=== PATIENT | female | born 1940 | race Caucasian/White ===

== ENCOUNTER → 2018-03-11 09:25 | Outpatient (CLI) | payer MEDICARE, OTHER, SELFPAY ==
[2018-03-11 09:45] LABS: Add Manual Diff / Slide Review NO; Basophils Percent Auto 1.2 % (0-2); Eosinophils Percent Auto 2.3 % (2-4); Hematocrit 40.7 % (36-46); Hemoglobin 14.1 g/dL (12.0-16.0); Lymphocytes Percent Auto 25.2 % (25-40); Mean Corpuscular HGB Conc 34.6 % (30-36); Mean Corpuscular Hemoglobin 30.7 PG (26-34); Mean Corpuscular Volume 88.8 fL (80-100); Monocytes Percent Auto 4.8 % (3-14); Neutrophils Absolute Auto 5200 /uL (3000-5900); Neutrophils Percent Auto 66.5 % (50-75); Platelet Count 306 X10^3/uL (150-400); Red Blood Cell Count 4.58 X10^6/uL (4.0-5.2); Red Cell Distribution Width 12.8 % (11.6-14.8); White Blood Cell Count 7.8 X10^3/uL (4.5-11.0)
[2018-03-11 10:12] LABS: Carbon Dioxide 33 mmol/L (22-32); Chloride 99 mmol/L (98-107); HEMOLYSIS < 15 (0-50); Potassium 3.5 mmol/L (3.4-5.1); Sodium 142 mmol/L (137-145)
== END ==
PROVIDERS: PCP Internal Medicine; Visit Provider Orthopaedic Surgery
DX: M16.12 Unilateral primary osteoarthritis, left hip (principal); Z01.818 Encounter for other preprocedural examination; Z01.812 Encounter for preprocedural laboratory examination
CPT/HCPCS: 36415; 80051; 85025; 93005

== ENCOUNTER → 2018-03-21 09:41 | Outpatient (CLI) | payer MEDICARE, OTHER, SELFPAY ==
--- NOTE | 2018-03-21 | DI.NM.S_ITS ---
PROCEDURE: NM CECE PERF SPECT R&S PHARM Rest and pharmacological stress myocardial perfusion SPECT with gated imaging and ejection fraction RADIOPHARMACEUTICAL: 27.3 mCi Tc-99m tetrafosmin IV at rest and 25.6 mCi Tc-99m tetrafosmin IV at peak effect of pharmacological stress. [id number] was performed. INDICATIONS: ABNORMAL EKG TECHNIQUE: Radiopharmaceutical was injected at peak stress test, and also at rest. SPECT images were obtained. SPECT myocardial perfusion images were displayed in short axis, horizontal long axis, and vertical long axis views. Gated images were reviewed using Rackwise software. COMPARISON: None. CARDIAC STRESS: A pharmacologic stress test was performed under the supervision of an attending staff, using an infusion of lexiscan 0.4mg IV X1. Hemodynamic data: There is normal blood pressure and heart rate response to pharmacologic stress. Symptoms: The patient denied anginal chest pain. Aminophylline: none EKG: Resting ECG shows sinus rhythm with right axis deviation and no ST-T changes. No diagnostic changes of ischemia; occasional PACs and occasional PVCs noted. FINDINGS: Raw data: There is good myocardial uptake of radiotracer. No significant motion artifacts. Left ventricle function: Gated images demonstrate normal left ventricular wall thickening. No segmental wall motion abnormalities. No transient ischemic dilation; TID is 0.85 (normal less than 1.3). Left ventricle resting end diastolic volume is 73 mL. Left ventricle stress ejection fraction is 90%; normal range is above 45%. Myocardial perfusion: There is normal distribution of activity in the right and left ventricular myocardium. No fixed or reversible perfusion defects. IMPRESSION: Low risk, normal pharmaceutical nuclear stress test 1) No perfusion evidence of ischemia or infarction. 2) Normal left ventricular size, wall motion, and systolic function (post stress EF 90%). 3) No ECG evidence of ischemia with lexiscan. 4) No prior nuclear stress test available for comparison. Dictated by: Shay Gavin MD on 03/22/2018 at 12:42 Approved by: Shay Gavin MD on 03/22/2018 at 12:45
--- NOTE | 2018-03-21 11:26 | PM.TREADMILL ---
Cardiac Stress Test Report Referral & Results Date Patient Seen: 03/21/18 Time Patient Seen: 11:26 Requesting provider: Avelino Chin Indication: Preop, abnormal resting ECG Rest ECG: Unremarkable, nonpathologic Q-waves seen Procedure Note: After both written and verbal informed consent the patient had an IV started by the diagnostic imaging RN and then was hooked up to the treadmill monitoring system. The patient was placed on the treadmill at 1 mile an hour with no elevation and was then injected with the Ines scan material. The Cardiolite was then immediately administered. The patient spent an additional 2-3 minutes on the treadmill before being returned to the [facility] in the supine position. The patient had a normal response to all infused materials. Impression: No evidence of ischemia but due to lack of exercise and use of Lexiscan would not expect to see any abnormalities at this stage. Perfusion imaging will be reported separately Please note: Actual ECG tracings can be found in the PACS system.
== END ==
PROVIDERS: Family Provider Internal Medicine; PCP Internal Medicine; Visit Provider Internal Medicine
DX: R94.31 Abnormal electrocardiogram [ECG] [EKG] (principal)
CPT/HCPCS: 78452; 93016; 93017; 93018; A9502; J2785

== ENCOUNTER 2018-04-04 08:04 | Inpatient (IN) | payer MEDICARE, OTHER, SELFPAY ==
[2018-03-23 13:34] VITALS: BMI 35.3
[2018-04-04] VITALS (17 sets, daily range): BP systolic 117–184; BP diastolic 52–97; PULSE 54–88; RESP 10–59; TEMP 35–36.9; O2SAT 93–97; BMI 35.3
[2018-04-04] MEDS: LACTATED RINGERS 1,000 ML 42 ML IV ×2 (08:45→10:48)
[2018-04-04] MEDS: PREGABALIN 75 MG CAPSULE PO (08:50)
[2018-04-04] MEDS: CELECOXIB 200 MG CAPSULE PO (08:50)
[2018-04-04] MEDS: ACETAMINOPHEN 325 MG TABLET 975 MG PO ×3 (08:50→20:47)
--- NOTE | 2018-04-04 09:30 | PM.PREOP ---
Pre-operative Note Interval Note Pre-op Check: Yes History & Physical Reviewed by Physician Changes: No
[2018-04-04] MEDS: CEFAZOLIN 2 GM/100 ML FROZ.PIGGY IV ×2 (09:40→17:20)
--- NOTE | 2018-04-04 09:45 | DI.RAD.S_ITS ---
PROCEDURE: XR PELVIS 1-2V INDICATIONS: LEFT TOTAL HIP TECHNIQUE: 1 view of the lower pelvis acquired. COMPARISON: [facility], , PELVIS 1 OR 2 VIEWS, 03/23/2011, 15:16. FINDINGS: Bones: Patient is status post left hip arthroplasty, with hardware components in expected positions. The hip joint appears congruent. The visualized bony structures appear intact. Soft tissues: Overlying postoperative changes are noted. No suspicious soft tissue densities. IMPRESSION: Prior right total hip arthroplasty remains normal in appearance, newly placed left total hip arthroplasty demonstrates normal alignment. Dictated by: Denys Dill M.D. on 04/04/2018 at 11:55 Approved by: Denys Dill M.D. on 04/04/2018 at 11:56
--- NOTE | 2018-04-04 10:16 | SUR.OPER ---
Lateral on padded OR bed. Gel axillary roll. Arms secured on padded armboard with pillow supporting top arm. Padded hip positioner braces x4 - anterior and posterior chest and pelvis. Additional gel pad used anterior pelvis. Gel pad under bottom leg from knee to foot and secured with tape over sheet.
[2018-04-04] MEDS: BUPIVACAINE 0.25% W/ EPI VIAL 50 ML INJ (10:22)
[2018-04-04] MEDS: TRANEXAMIC ACID 1,000 MG VIAL 1000 MG INJ ×2 (10:23→10:51)
--- NOTE | 2018-04-04 11:23 | PM.OP.1 ---
Operative Date/Time/Diagnoses Date of procedure: 04/04/18 Time of procedure: 11:23 Pre-op diagnosis: Left hip degenerative joint disease Post-op diagnosis: same Procedure & Clinicians Procedure: Left total hip arthroplasty (CPT code 41141 with property management assistant) Same procedure as scheduled: Yes Indications: Patient is an 77-year-old female with severe left hip DJD. The patient has pain with activities and at rest, limited ambulation and activity tolerance, difficulties with ADLs, and failure of conservative treatment. We have discussed the nature of condition, treatment options, risks and benefits, and patient elects to proceed with total hip arthroplasty and gives informed consent. Surgeon: Dandre Valencia [employer] Machine Feeder: Olive Barber Anesthesia Type: General and Spinal Operative Notes Closure Type: primary Specimen(s): none sent Implants & Drains: Acetabulum: [employer]hew R3 acetabular component size 52 mm Femoral component: [employer]hew Synergy stem size 12 with high offset Femoral head: 36 mm + 0 cobalt chrome Estimated Blood Loss (mL): 100 Blood products transfused: none Procedure in detail: After satisfaction induction of anesthetic, and administration of IV antibiotics, the patient was positioned in the lateral decubitus position with all bony prominences well padded and pelvic position secured using a hip political advisor positioning device. Left hip and lower extremity prepped and draped in the usual sterile fashion, 1st dose of intravenous tranexamic acid was administered, then a longitudinal incision was created centered over the greater trochanter and carried sharply through the skin and subcutaneous tissues down to the fascia shawanad which was divided longitudinally and retracted with a Charnley retractor. External rotators visualize, cut, tagged, and retracted posteriorly, then the capsule was cut in a T-type fashion with the corners tagged and retracted. Hip was dislocated and femoral neck cut made according to preoperative templating. Acetabular retractors then placed, and the acetabular labrum and osteophytes were excised. The acetabulum was then sequentially reamed to 51 mm with an excellent circumferential ream and fit with the trial. The trial component was removed and a permanent size 52 mm Anne [employer]hew R3 acetabular component was selected, positioned, and impacted with satisfactory position and fixation achieved. Permanent liner was then inserted with the elevated lip directed posteriorly. Soft tissue then removed off the lateral femoral neck in the lateral neck was entered using a box osteotome. T-handled reamers placed down the canal followed by sequential broaching to 12 with the final broach left in place for trial reduction which demonstrated excellent leg length, range of motion, and stability characteristics with a 36 mm +0 trial ball. The trial and broach were removed, and a permanent size 12 Anne and Nephew Synergy stem was selected and inserted with excellent position and fixation achieved. Another trial reduction yielded the above characteristics so the trial ball was exchanged for a permanent 36 mm +0 cobalt chrome ball. The hip was irrigated and reduced and excellent leg length range of motion and stability characteristics were achieved and maintained. The hip was copiously irrigated, and the capsule repaired with #2 Ethibond, and the piriformis was repaired back to the greater trochanter with the same. Fascia shawanda closed with interrupted #1 Ethibond sutures, and the subcutaneous tissues were closed in 2 layers of 0 Vicryl and 2 0 Vicryl. Skin was closed with chester and sterile dressings applied. Second dose of tranexamic acid was administered intravenously, and the anesthetic was terminated. Complications: none Condition: stable Disposition: PACU Plan for aftercare: Patient will be admitted to the acute care [facility], and anticipate discharge on postop day 1-2 with follow-up in office in 10-14 days. Outpatient physical therapy will be arranged and patient will continue to observe posterior hip precautions. Patient will continue use of postoperative Lovenox for 10 days postop.
--- NOTE | 2018-04-04 11:52 | SUR.PHASEI ---
gLASSES AND CLOTHES TO 218 WITH PATIENT
--- NOTE | 2018-04-04 12:03 | PC.NURSE ---
Day shift: Pt arrived on AC unit at 1200 from PACU. Oriented to room and call light. She is A&Ox3. Denies pain. Left hip bulky dressing is CDI. Call light in reach. Agrees to not get OOB w/o help. She has had her other hip done in the past. VS ok.
[2018-04-04] MEDS: LACTATED RINGERS 1,000 ML 125 ML IV ×2 (12:24→20:58)
--- NOTE | 2018-04-04 17:07 | PT.IIE ---
Current Diagnoses Unilateral primary osteoarthritis, left hip (04/04/18) Surgery Performed Operation Date: 04/04/18 09:45 Actual Procedures p Total Hip Arthroplasty(Left) - Dandre Valencia MD Surgical History (Last Updated 03/23/18 @ 14:39 by Krissy Hutchinson, RN) History of appendectomy (Acute ~1946) History of cardiac cath (Acute) History of cystoscopy (Acute) History of dilation and curettage (Acute) History of eye surgery (Acute ~1947) History of total right hip arthroplasty (Acute) Status post blepharoplasty of both eyes (Acute) Medical History (Last Updated 03/23/18 @ 16:52 by Krissy Hutchinson, RN) Amblyopia of right eye (Acute) Blind right eye (Acute) Carbuncle and furuncle of face (Acute) Cataract (lens) fragments in eye following cataract surgery, left eye (Acute) Constipation (Acute) Depression (Acute) Dyspnea on exertion (Acute) Hearing loss (Acute) History of bradycardia (Acute) History of chest pain (Acute) History of headache (Acute) History of hysterectomy (Acute) History of nuclear stress test (Acute) History of prosthetic unicompartmental arthroplasty of left knee (Acute) History of uterine fibroid (Acute) Hypertension (Acute) Hypoglycemia (Acute ~1969) Impaired vision (Acute) Insomnia, unspecified (Acute) Lumbago (Acute) Malaise and fatigue (Acute) Mitral valve disorder (Acute) Numbness and tingling of leg (Acute) Obesity (Acute) Osteoarthrosis, localized (Acute) Other specified disease of hair and hair follicles (Acute) Other symptoms involving digestive system (Acute) Primary osteoarthritis of left hip (Acute) Ptosis (Acute) Physical Therapy Inpatient Evaluation/Re-Eval M1 PT/OT-IP Prior Functional Status Start: 04/04/18 16:54 Freq: NEEDED Status: Active Protocol: Document 04/04/18 16:55 [facility] (Rec: 04/04/18 17:07 [facility] [id number]) Medical Review Prior Functional Status Medical History Reviewed Yes Diet/Fluid Consistency Regular Communication WNL Mobility and Gait Independent, using cane before sx due to hip pain, ambulates community distances Activities of Daily Living and IADL's Independent Social History Household Members spouse Living Arrangements House Number of Floors (Floors) One Floor Number of Stairs To Enter/Railing? one small step in doorway Home Environment Standard Height Toilet Walk in Shower Built-In Shower Seat Home Equipment Front Wheel Walker Straight Cane Raised Toilet Seat w/Armrests Final Tester Grab Bars In Shower Employment Status Retired Additional Social History Comment she is interested in getting a sock aid M2 PT-IP Current Condition Start: 04/04/18 16:54 Freq: NEEDED Status: Active Protocol: Document 04/04/18 16:55 DLM (Rec: 04/04/18 17:07 [facility] [id number]) Physical Therapy Current Condition Current Condition Evaluation Date 04/04/18 Treatment Diagnosis left DAISHA, posterior approach, impaired gait Onset Date 04/04/18 Precautions Posterior Hip Precautions No Hip Flexion > 90 degrees No Hip Internal Rotation No Hip Adduction Weight Bearing Status Weight Bearing Status Weight Bear as Tolerated M3 PT-IP Subjective Start: 04/04/18 16:54 Freq: NEEDED Status: Active Protocol: Document 04/04/18 16:55 DLM (Rec: 04/04/18 17:07 [facility] [id number]) Subjective Physical Therapy Visit Type Type Initial Evaluation Visit Start Time 16:25 Visit Stop Time 16:55 Total Visit Minutes 30 Number of CORRECTIONAL LIEUTENANT Visits 0 Physical Therapy Visit Comments Patient Comments She feels like she could get up Patient Goals discharge home with her Spouse Therapy Pain Assessment Pain When Pain Assessed During Mobility Pain Present Pain Present Pain Reported Location Left Hip Intensity 1 Scale Used Numeric (1 - 10) Description Aching Pain Management Techniques Apply Cold M4 PT-IP Mobility and Gait Start: 04/04/18 16:54 Freq: NEEDED Status: Active Protocol: Document 04/04/18 16:55 DLM (Rec: 04/04/18 17:07 [facility] [id number]) PT-Bed Mobility Assessment Supine to Sit Supine to Sit Contact Guard Assistance Scooting Scooting to Edge of Bed Independent PT-Transfer Assessment Sit to and From Stand Sit to and from Stand Contact Guard Assistance Use of Upper Extremities Equipment Transfer Assistive Device Gait Belt Front Wheeled Walker Transfers Transfer Destination Chair Transfer Technique Stand Step Pivot Transfer Ability Level of Assist Contact Guard Assistance Use of Upper Extremities Comments Mobility Comments no light-headedness and no nausea reported, pt left up in recliner with feet elevated, pillow between knees and call- light close, Spouse visiting Gait Assessment Gait Gait Assistance Required: Minimum Assistance Distance (Feet) 6 Able to Maintain Weight Bearing Status Yes During Gait Assistive Devices Assistive Device Gait Belt Front Wheeled Walker Gait Deviations General Gait Pattern Antalgic Factors Limiting Gait Function Factors Limiting Gait Function Decreased Activity Tolerance Decreased Strength Pain Poor Balance Comments Gait Comments intermittent episodes of left LE buckling during gait, assisted pt to recover safe standing PT-Balance Assessment Sitting Balance and Reactions Static Sitting Balance Ability Normal Dynamic Sitting Balance Ability Normal Standing Balance and Reactions Static Standing Balance Ability Fair Dynamic Standing Balance Ability Fair Device Used FWW M5 PT-IP Objective Assessments Start: 04/04/18 16:54 Freq: NEEDED Status: Active Protocol: Document 04/04/18 16:55 DLM (Rec: 04/04/18 17:07 [facility] [id number]) Orientation Orientation/Cognition Level of Alertness Alert Orientation Name Age Birthday Month Date Year Day of Week Place Situation Language Function Ability No Deficits Noted Safety Awareness Understands Safety Issues Memory Description No Deficits Noted Gross Range of Motion Upper Extremity ROM Assessment Within Functional Limits Lower Extremity ROM Assessment Within Functional Limits Impairments post-op precautions left hip Strength Upper Extremity Strength Assessment Within Functional Limits Lower Extremity Strength Assessment Left Impaired Hip moving actively Knee ext 4-/5 Ankle DF 4+/5 Comments Strength Comments functional weakness left LE during gait with LE attempting to buckle Coordination Assessment Gross Coordination Gross Coordination WNL Sensation Assessment Sensation Light Touch Intact Comments Sensation Comments she reports touch intact left LE post-op, numbness has worn off, possible decrease in proprioception contributing to decreased motor control left LE Muscle Tone Muscle Tone WNL Yes M6 PT-IP Treatment Start: 04/04/18 16:54 Freq: NEEDED Status: Active Protocol: Document 04/04/18 16:55 D[facility] (Rec: 04/04/18 17:07 [facility] [id number]) Physical Therapy Treatment Exercises Exercises Ankle Pumps Gluteal Sets Education Education Provided Precautions Weight Bearing Status Post-Op Packet Safety Other Treatments Other Treatment Performed her Spouse is present for therapy session and participated in education M7 PT-IP Assessment and Plan Start: 04/04/18 16:54 Freq: NEEDED Status: Active Protocol: Document 04/04/18 16:55 DLM (Rec: 04/04/18 17:07 [facility] [id number]) PT Summary Assessment and Plan Potential Rehabilitation Potential Good Status of Condition at Evaluation Evolving Summary Impairments Pain ROM Strength Balance Bed Mobility Transfers Gait Activity Tolerance Assessment Summary Pt able to get up to recliner this visit. Initiated gait training with short distance in room but pt having intermittent buckling left LE that made further gait unsafe at this time. She has a supportive Spouse who plans to assist her at discharge. Will plan for discharge home in 1- 2 days as her LE strength improves for safe gait with fWW. Goals Bed Mobility Goal Independent Transfer Goal Independent Front Wheeled Walker Gait Goal Independent Front Wheel Walker Gait Distance 150 feet Days to Meet Goals 2 Frequency of Treatment Frequency Of Treatment Twice a Day Treatment Plan Physical Therapy Treatment Plan Bed Mobility Training Transfer Training Gait Training Therapeutic Exercise Balance Retraining Post Op Education Discharge Planning Hot or Cold Pack Recommendations To Nursing Amount of Assist Needed 1 Person Assist Discharge Recommendations PT Discharge Recommendations Home with Assistance Outpatient PT
[2018-04-04] MEDS: OXYCODONE IR 5 MG TABLET PO ×2 (17:26→22:07)
[2018-04-04] MEDS: ASPIRIN EC 81 MG TABLET PO (20:50)
[2018-04-04] MEDS: DOCUSATE 100 MG CAPSULE PO (20:51)
[2018-04-04] MEDS: TRAZODONE 50 MG TABLET 150 MG PO (22:14)
[2018-04-05] MEDS: CEFAZOLIN 2 GM/100 ML FROZ.PIGGY IV (01:59)
[2018-04-05 02:18] VITALS: BP 131/57; PULSE 91; RESP 16; TEMP 36.9; O2SAT 95
[2018-04-05 05:47] VITALS: BP 122/58; PULSE 91; RESP 16; TEMP 36.9; O2SAT 93
[2018-04-05 06:40] LABS: Hematocrit 32.9 % (36-46); Hemoglobin 11.7 g/dL (12.0-16.0)
[2018-04-05] MEDS: hydrOXYzine pamoate 25 MG CAPSULE PO ×2 (06:57→13:09)
[2018-04-05 08:45] VITALS: BP 154/75; PULSE 95; RESP 18; TEMP 37.4; O2SAT 96
--- NOTE | 2018-04-05 09:20 | PM.DS.1 ---
History of Present Illness Date Patient Seen: 04/05/18 Chief complaint: [id number] Narrative: Patient seen bedside s/p l. DAISHA POD #1. Patient doing well, pain is well controlled and they are moving well. They would like to go home today. Discharge Providers Date of admission: 04/04/18 08:04 Primary care physician: Avelino Chin MD Consults: 04/04/18 12:02 Consult to Discharge Planning Routine Comment: Consult to Physical Therapy Evaluate & Treat Comment: Physician Instructions: post op DAISHA protocol Consult to Respiratory Therapy Evaluate & Treat Comment: Physician Instructions: Evaluate and treat Discharge provider: Marline Boyer PA-C Discharge Date: 04/05/18 Summary Discharge Diagnosis: left hip osteoarthritis Hospital Course: Patient admitted to the hospital s/p L. DAISHA on 04/04/[address] Valencia. Patient tolerated the procedure well with no complications. She was transferred to the acute care floor where she was evaluated by PT and recommended for discharge home. Patient was stable and ready for discharge on 04/05/18 Status at Discharge Cognitive/behavioral status at discharge: alert & oriented x3 Functional status at discharge: uses cane/walker Overall status at discharge: patient is progressing back to baseline Time Spent with Patient Less than 30 minutes Exam Vital Signs (past 8 hours): - 04/05/18 02:18 04/05/18 05:47 04/05/18 08:45 Temperature 98.5 F 98.4 F 99.3 F Pulse Rate 91 H 91 H 95 H Respiratory Rate 16 16 18 Blood Pressure 131/57 L 122/58 L 154/75 H Pulse Oximetry 95 93 96 Oxygen Delivery Method Room Air Narrative Exam Narrative: WDWN NAD A&Ox3. Left hip dressing CDI, patient is NVI with full ROM of the ankle and knee. Calf is soft and compressible. Objective Labs Result Diagrams: 04/05/18 05:42 Labs: Laboratory Results - last 24 hr 04/05/18 05:42 Hgb 11.7 L Hct 32.9 L Discharge Plan Discharge Plan Patient Disposition: Home Discharge Med Rec/Prescriptions Prescriptions: New acetaminophen 325 mg Tablet 975 mg PO TID Qty: 0 RF: 0 aspirin 81 mg Tablet,Delayed Release (Dr/Ec) 81 mg PO BID Qty: 0 RF: 0 oxycodone 5 mg Tablet 5 mg PO Q3HR PRN (Reason: Pain, Moderate (4-6)) Qty: 0 RF: 0 hydroxyzine pamoate 25 mg Capsule 25 mg PO Q6HR PRN (Reason: Spasms) Qty: 0 RF: 0 enoxaparin [Lovenox] 40 mg/0.4 mL Syringe 40 mg subcut DAILY 9 Days RF: 0 Continue Trazodone Hydrochloride (Trazodone HCl) 150 mg PO QDAY Qty: 0 RF: 0 naproxen sodium [Aleve] 220 MG tablet 440 mg PO PRN Qty: 0 RF: 0 CHOLECALCIFEROL (D3-5) 2,000 iu PO QDAY Qty: 0 RF: 0 hydrochlorothiazide 25 mg Tablet 25 mg PO DAILY RF: 0 paroxetine HCl [Paxil] 40 mg Tablet 40 mg PO DAILY RF: 0 losartan 100 mg Tablet 100 mg PO DAILY RF: 0 biotin 2,500 mcg Capsule 2,500 mcg PO DAILY RF: 0 clindamycin HCl 300 mg Capsule 600 mg PO SEEINSTR RF: 0 Discontinued ASPIRIN (#ASPI-COR) 81 mg PO QDAY Qty: 0 RF: 0 Follow up/Referrals: Avelino Chin MD [Primary Care Provider] - Dandre Valencia MD [Physician] - (F/u 04/11/18 at 9:30 am with Herman Lan PA-C at the [employer] [employer] [facility] office) Provider Discharge Instructions Diet: Diet as Tolerated Activity: weightbearing as tolerated, use walker until stable, follow posterior hip precautions Cold/Heat Therapy: Apply ice 20 minutes at a time at least hourly as needed while awake Skin/Wound/Dressing Care Report to your healthcare provider any signs of infection, such as:: chills, fever, night sweats, increased pain and unusual drainage Dressing: Keep dressing clean, dry, and intact Visit Report/Discharge Packet Instructions: DI for Hip Replacement, Stool Softeners, Acetaminophen, Oxycodone, Hydroxyzine Visit Report Forms: Stroke Signs & Symptoms Discharge Data Primary Care Provider: Avelino Chin Attending Provider: Dandre Valencia Admit Date/Time: 04/04/18 08:04 Discharges patient from system. Discharge Date/Time: 04/05/18 13:44
[2018-04-05] MEDS: DOCUSATE 100 MG CAPSULE PO (09:43)
[2018-04-05] MEDS: OXYCODONE IR 5 MG TABLET PO ×2 (09:44→13:09)
[2018-04-05] MEDS: ACETAMINOPHEN 325 MG TABLET 975 MG PO (09:45)
[2018-04-05] MEDS: ASPIRIN EC 81 MG TABLET PO (09:46)
[2018-04-05] MEDS: ENOXAPARIN 40 MG/0.4 ML SYRINGE SUBCUT (09:46)
--- NOTE | 2018-04-05 09:49 | PT.IPTN ---
Current Diagnoses Unilateral primary osteoarthritis, left hip (04/04/18) Surgery Performed Operation Date: 04/04/18 09:45 Actual Procedures p Total Hip Arthroplasty(Left) - Dandre Valencia MD Physical Therapy Treatment Note M2 PT-IP Current Condition Start: 04/04/18 16:54 Freq: NEEDED Status: Active Protocol: Document 04/04/18 16:55 DLM (Rec: 04/04/18 17:07 DLM [id number]) Physical Therapy Current Condition Current Condition Evaluation Date 04/04/18 Treatment Diagnosis left DAISHA, posterior approach, impaired gait Onset Date 04/04/18 Precautions Posterior Hip Precautions No Hip Flexion > 90 degrees No Hip Internal Rotation No Hip Adduction Weight Bearing Status Weight Bearing Status Weight Bear as Tolerated M3 PT-IP Subjective Start: 04/04/18 16:54 Freq: NEEDED Status: Active Protocol: Document 04/05/18 09:39 SA (Rec: 04/05/18 09:49 SA [id number]) Subjective Physical Therapy Visit Type Type Treatment Note Visit Start Time 09:15 Visit Stop Time 09:35 Total Visit Minutes 20 Number of APRICOT PACKER Visits 1 Physical Therapy Visit Comments Patient Comments Pt agreeable to PT this AM, denies pain as she states she has'nt been moving much. Patient Goals discharge home with her Spouse Therapy Pain Assessment Pain When Pain Assessed During Mobility Pain Present Pain Present Pain Reported Location Left Hip Intensity 3 Scale Used Numeric (1 - 10) Description Aching Pain Management Techniques Apply Cold Re-positioning M4 PT-IP Mobility and Gait Start: 04/04/18 16:54 Freq: NEEDED Status: Active Protocol: Document 04/05/18 09:39 SA (Rec: 04/05/18 09:49 SA [id number]) PT-Bed Mobility Assessment Supine to Sit Supine to Sit Minimal Assistance Scooting Scooting to Edge of Bed Independent PT-Transfer Assessment Sit to and From Stand Sit to and from Stand Contact Guard Assistance 1 Person Assistance Use of Upper Extremities Equipment Transfer Assistive Device Gait Belt Front Wheeled Walker Transfers Transfer Destination Chair Transfer Technique Stand Step Pivot Transfer Ability Level of Assist Contact Guard Assistance Use of Upper Extremities Comments Mobility Comments Pt denied dizziness/nausea with standing, states WBing causes hip/groin pain. Pt limiting WBing through LLE. Gait Assessment Gait Gait Assistance Required: Contact Guard Assist Distance (Feet) 20 Able to Maintain Weight Bearing Status Yes During Gait Assistive Devices Assistive Device Gait Belt Front Wheeled Walker Gait Deviations General Gait Pattern Antalgic Decreased Feet Clearance Step-to Gait Factors Limiting Gait Function Factors Limiting Gait Function Decreased Activity Tolerance Decreased Strength Pain Poor Balance Comments Gait Comments No LLE buckling noted today but Pt WBing heavily through UEs/FWW. M5 PT-IP Objective Assessments Start: 04/04/18 16:54 Freq: NEEDED Status: Active Protocol: Document 04/04/18 16:55 DL (Rec: 04/04/18 17:07 [facility] [id number]) Orientation Orientation/Cognition Level of Alertness Alert Orientation Name Age Birthday Month Date Year Day of Week Place Situation Language Function Ability No Deficits Noted Safety Awareness Understands Safety Issues Memory Description No Deficits Noted Gross Range of Motion Upper Extremity ROM Assessment Within Functional Limits Lower Extremity ROM Assessment Within Functional Limits Impairments post-op precautions left hip Strength Upper Extremity Strength Assessment Within Functional Limits Lower Extremity Strength Assessment Left Impaired Hip moving actively Knee ext 4-/5 Ankle DF 4+/5 Comments Strength Comments functional weakness left LE during gait with LE attempting to buckle Coordination Assessment Gross Coordination Gross Coordination WNL Sensation Assessment Sensation Light Touch Intact Comments Sensation Comments she reports touch intact left LE post-op, numbness has worn off, possible decrease in proprioception contributing to decreased motor control left LE Muscle Tone Muscle Tone WNL Yes M6 PT-IP Treatment Start: 04/04/18 16:54 Freq: NEEDED Status: Active Protocol: Document 04/05/18 09:39 (Rec: 04/05/18 09:49 [id number]) Physical Therapy Treatment Exercises Exercises Ankle Pumps Gluteal Sets Quad Sets Heel Slides Education Education Provided Precautions Weight Bearing Status Post-Op Packet Safety Other Treatments Other Treatment Performed Spouse present for half of therapy session. M7 PT-IP Assessment and Plan Start: 04/04/18 16:54 Freq: NEEDED Status: Active Protocol: Document 04/05/18 09:39 (Rec: 04/05/18 09:49 [id number]) PT Summary Assessment and Plan Potential Rehabilitation Potential Good Status of Condition at Evaluation Evolving Summary Assessment Summary Pt agreeable to sit up in recliner with CP to L hip/ groin and LE elevated. Spouse present/supportive and receptive to education. Frequency of Treatment Frequency Of Treatment Twice a Day Treatment Plan Physical Therapy Treatment Plan Bed Mobility Training Transfer Training Gait Training Therapeutic Exercise Balance Retraining Post Op Education Discharge Planning Hot or Cold Pack Recommendations To Nursing Amount of Assist Needed 1 Person Assist Discharge Recommendations PT Discharge Recommendations Home with Assistance Outpatient PT
[2018-04-05 11:43] VITALS: BP 144/59; PULSE 88; RESP 18; TEMP 37.4; O2SAT 93
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
--- NOTE | 2018-04-05 13:42 | PC.NURSE ---
Day shift: Pt left unit at approx 1335 in WC w/ this proposal lead writer and spouse to private car bound for [facility]. Medicated for pain prior to d/c. Called in [employer] script per HEATHER Boyer. Paperwork signed and all questions answered. Pt has all personal belongings.
== END 2018-04-05 13:44 | disposition home or self-care (01) | DRG 470 ==
PROVIDERS: Admitting Provider Orthopaedic Surgery; Family Provider Internal Medicine; PCP Internal Medicine; Visit Provider Orthopaedic Surgery
PROC: 0SRB0JZ Replacement of Left Hip Joint with Synthetic Substitute, Open Approach (ICD-10-PCS; CPT 27130; principal; 2018-04-04 09:45)
DX: M16.12 Unilateral primary osteoarthritis, left hip (principal); Z96.641 Presence of right artificial hip joint; I10 Essential (primary) hypertension; I25.10 Atherosclerotic heart disease of native coronary artery without angina pectoris; I05.9 Rheumatic mitral valve disease, unspecified
CPT/HCPCS: 36415; 72170; 85014; 85018; 97110; 97116; 97162; C1776; J0690; J1650; J2250; J2704; J3010

== ENCOUNTER → 2018-11-11 11:55 | Outpatient (CLI) | payer MEDICARE, OTHER, SELFPAY ==
[2018-04-04 12:37] VITALS: BMI 35.3
[2018-11-11 13:50] LABS: Alanine Aminotransferase 23 IU/L (9-52); Albumin 4.2 g/dL (3.5-5.0); Albumin Globulin Ratio 1.4 (1.0-2.8); Alkaline Phosphatase 81 U/L (38-126); Aspartate Aminotransferase 19 IU/L (14-36); BUN Creatinine Ratio 24.4 (6-22); Bilirubin Total 0.5 mg/dL (0.2-1.3); Blood Urea Nitrogen 22 mg/dL (7-17); Calcium 9.9 mg/dL (8.4-10.2); Carbon Dioxide 34 mmol/L (22-32); Chloride 96 mmol/L (98-107); Estimated Glomerular Filt Rate > 60.0 mL/min (>60); Globulin 2.9 g/dL (1.7-4.1); Glucose 101 mg/dL (80-110); HEMOLYSIS < 15 (0-50); Magnesium 1.9 mg/dL (1.6-2.3); Potassium 3.8 mmol/L (3.4-5.1); Sodium 138 mmol/L (137-145); Total Protein 7.1 g/dL (6.3-8.2)
[2018-11-11 14:20] LABS: Thyroid Stimulating Hormone 0.35 uIU/mL (0.47-4.68)
== END ==
PROVIDERS: Family Provider Internal Medicine; PCP Internal Medicine; Visit Provider Physician Assistant Medical
DX: I10 Essential (primary) hypertension (principal); I48.0 Paroxysmal atrial fibrillation
CPT/HCPCS: 36415; 80053; 83735; 84443

== ENCOUNTER 2019-01-16 16:23 | Emergency (ER) | payer MEDICARE, OTHER, SELFPAY ==
[2018-04-04 12:37] VITALS: BMI 35.3
[2019-01-16 16:30] VITALS: BP 154/69; PULSE 58; RESP 17; TEMP 37.1; O2SAT 96
--- NOTE | 2019-01-16 17:06 | DI.CT.S_ITS ---
PROCEDURE: CT ABDOMEN PELVIS W CON INDICATIONS: severe RLQ pain, sent by outside provider TECHNIQUE: After the administration of intravenous contrast, 5 mm thick sections acquired from the diaphragm to the symphysis. 5 mm coronal and sagittal reformats were acquired. For radiation dose reduction, the following was used: automated exposure control, adjustment of mA and/or kV according to patient size. COMPARISON: None. FINDINGS: Image quality: Excellent. ABDOMEN: Lung bases: Mild bibasilar atelectasis. Scarring versus subsegmental atelectasis at the lingula. Heart size is normal. Solid organs: Liver is normal in size and enhancement. Gallbladder is unremarkable in CT appearance. Biliary system is non dilated. Pancreas enhances normally. Spleen is normal in size and enhancement. No right adrenal nodules. Incompletely characterized 1.1 cm left adrenal nodule. Kidneys demonstrate normal size and enhancement, without hydronephrosis. There is a 4.1 cm simple right renal cyst. Peritoneum and bowel: Bowel loops demonstrate normal wall thickness and caliber. Scattered colonic diverticula without acute inflammatory changes. Subtle stranding near the level of the urinary bladder is favored to represent artifact secondary to beam hardening by the adjacent bilateral hip arthroplasty hardware. No free fluid or air. Nodes and vessels: No retroperitoneal or mesenteric adenopathy by size criteria. Aorta and inferior vena cava are normal in size. Miscellaneous: Small fat-containing periumbilical hernia without acute inflammation. PELVIS: Genitourinary: Bladder wall thickness is normal. Status post hysterectomy. There is a well-circumscribed 6 cm fluid attenuation cystic lesion in the region of the left ovary/adnexa without adjacent inflammatory stranding. Miscellaneous: No inguinal hernias or adenopathy. Bones: No suspicious bony lesions. No acute vertebral body compression fractures. Moderate multilevel lumbar spondylosis with vacuum disc phenomenon at L4-5 and L5-S1. Status post bilateral hip arthroplasties resulting in moderate streak and beam hardening artifact of the lower pelvis. This limits evaluation of the lower pelvic structures. IMPRESSION: 1. CT abdomen and pelvis without acute abnormalities to explain patient's right lower quadrant abdominal pain. 2. Scattered colonic diverticulosis without acute diverticulitis. 3. Incompletely characterized 1.1 cm left adrenal nodule. Recommend dedicated outpatient multiphasic contrast-enhanced CT of the abdomen (adrenal mass protocol) for further characterization. 4. A 6 cm fluid attenuation cystic lesion in the left adnexa without adjacent inflammatory stranding. Consider further characterization with pelvic ultrasound if any pelvic pain. Otherwise, recommend imaging surveillance with pelvic ultrasound in one year. 5. The appendix and uterus are not visualized and compatible with reported history of prior appendectomy and hysterectomy. Dictated by: Raul Jordan M.D. on 01/16/2019 at 18:13 Approved by: Raul Jordan M.D. on 01/16/2019 at 18:29
[2019-01-16 17:15] LABS: Add Manual Diff / Slide Review NO; Basophils Absolute Auto 100 /uL (0-100); Basophils Percent Auto 0.9 % (0-2); Eosinophils Absolute Auto 200 /uL (0-450); Eosinophils Percent Auto 2.4 % (2-4); Hematocrit 39.8 % (36-46); Hemoglobin 13.8 g/dL (12.0-16.0); Lymphocytes Absolute Auto 2400 /uL (1100-4500); Lymphocytes Percent Auto 25.1 % (25-40); Mean Corpuscular HGB Conc 34.6 % (30-36); Mean Corpuscular Volume 89.8 fL (80-100); Monocytes Absolute Auto 500 /uL (0-900); Monocytes Percent Auto 5.4 % (3-14); Neutrophils Absolute Auto 6300 /uL (1500-7000); Neutrophils Percent Auto 66.2 % (50-75); Platelet Count 294 X10^3/uL (150-400); Red Blood Cell Count 4.44 X10^6/uL (4.0-5.2); Red Cell Distribution Width 13.7 % (11.6-14.8); White Blood Cell Count 9.5 X10^3/uL (4.5-11.0)
[2019-01-16 17:21] LABS: Prothrombin Time 11.5 SECONDS (10.1-12.7)
[2019-01-16 17:24] LABS: PTT Partial Thromboplastin Tim 34 SECONDS (26.4-36.2)
[2019-01-16 17:26] LABS: Alanine Aminotransferase 17 IU/L (9-52); Albumin 4.5 g/dL (3.5-5.0); Albumin Globulin Ratio 1.4 (1.0-2.8); Alkaline Phosphatase 92 U/L (38-126); Aspartate Aminotransferase 22 IU/L (14-36); BUN Creatinine Ratio 26.7 (6-22); Bilirubin Total 0.5 mg/dL (0.2-1.3); Blood Urea Nitrogen 24 mg/dL (7-17); Calcium 9.6 mg/dL (8.4-10.2); Carbon Dioxide 32 mmol/L (22-32); Chloride 96 mmol/L (98-107); Estimated Glomerular Filt Rate > 60.0 mL/min (>60); Globulin 3.3 g/dL (1.7-4.1); Glucose 97 mg/dL (80-110); HEMOLYSIS < 15 (0-50); Lipase 95 U/L (23-300); Potassium 3.5 mmol/L (3.4-5.1); Sodium 138 mmol/L (137-145); Total Protein 7.8 g/dL (6.3-8.2)
[2019-01-16 17:32] LABS: Bacteria Urine None Seen; RBC Urine None Seen (0-5/HPF)
[2019-01-16 17:39] LABS: WBC Urine 5-10/HPF (0-5/HPF)
[2019-01-16 17:40] LABS: Culture Indicated Urine Specimen Cultured
[2019-01-16 18:10] VITALS: BP 172/73; PULSE 60; RESP 16; O2SAT 97
--- NOTE | 2019-01-16 18:41 | ED_ITS ---
HPI - Abdominal Pain General Chief Complaint: Abdominal Pain Stated Complaint: Possible kidney stone, sent by Time Seen by Provider: 01/16/19 16:56 Source: patient and family Mode of arrival: ambulatory Limitations: no limitations History of Present Illness HPI narrative: 78-year-old female nonsmoker without significant medical history presents with her at the request of her primary care provider for ev aluation of significant right lower quadrant pain with radiation to her back. She denies any injury nor any history of the same. She denies any dysuria, frequency or urgency. It seemed to be worse with motion and improves with rest. She has a surgically absent appendix. She denies much in the way of other symptoms such as fever chills nor nausea, vomiting or diarrhea. Related Data Home Medications Medication Instructions Recorded Confirmed CHOLECALCIFEROL (D3-5) 2,000 iu PO QDAY #0 03/23/11 04/04/18 naproxen sodium [Aleve] 440 mg PO PRN #0 03/23/11 04/04/18 trazodone 150 mg PO DAILY #0 03/23/11 01/16/19 biotin 2,500 mcg PO DAILY 03/23/18 04/04/18 clindamycin HCl 600 mg PO SEEINSTR 03/23/18 03/23/18 hydrochlorothiazide 25 mg PO DAILY 03/23/18 01/16/19 losartan 100 mg PO DAILY 03/23/18 01/16/19 paroxetine HCl [Paxil] 40 mg PO DAILY 03/23/18 01/16/19 amlodipine 10 mg PO DAILY 01/16/19 01/16/19 metoprolol tartrate 50 mg PO BID 01/16/19 01/16/19 neomycin-polymyxin B-dexameth 01/16/19 valsartan 320 mg PO DAILY 01/16/19 01/16/19 Previous Rx's Medication Instructions Recorded acetaminophen 975 mg PO TID #0 tab 04/05/18 aspirin 81 mg PO BID #0 tab 04/05/18 hydroxyzine pamoate 25 mg PO Q6HR PRN #0 cap 04/05/18 oxycodone 5 mg PO Q3HR PRN #0 tab 04/05/18 cephalexin [Keflex] 500 mg PO QID 7 Days #28 cap 01/16/19 ondansetron 4 mg PO TID-QID PRN #10 tab 01/16/19 oxycodone 5 mg PO Q4-6H PRN #10 tab 01/16/19 Allergies Allergy/AdvReac Type Severity Reaction Status Date / Time Morphine Allergy Intermediate Terrible Uncoded 01/16/19 16:33 itch all over Hydromorphone AdvReac Severe Projectile Uncoded 01/16/19 16:33 vomiting Erythromycin AdvReac Mild N&V Uncoded 01/16/19 16:33 Review of Systems Constitutional Denies chills, Denies fever(s), Denies lethargy and Denies weakness Eyes Denies change in vision, Denies eye discharge, Denies irritation and Denies loss of vision ENT Ears, Nose, Mouth, and Throat: Denies change in voice, Denies neck pain and Denies sore throat Cardiovascular Denies chest pain, Denies irregular heart rhythm, Denies lightheadedness, Denies palpitations, Denies dyspnea, Denies dyspnea on exertion and Denies orthopnea Respiratory Denies cough, Denies dyspnea, Denies dyspnea on exertion and Denies wheezing Gastrointestinal Gastrointestinal: Reports abdominal pain, Denies change in bowel habits, Denies diarrhea, Denies nausea and Denies vomiting Genitourinary Denies hematuria, Denies flank pain, Denies urinary incontinence and Denies urinary urgency Musculoskeletal Denies neck pain Integumentary/Breasts Denies pruritus, Denies erythema, Denies rash and Denies wounds Neurologic Denies confusion, Denies loss of vision and Denies weakness Psychiatric Denies anxiety, Denies confusion, Denies depression, Denies homicidal ideation and Denies suicidal ideation Endocrine Denies palpitations Hematologic/Lymphatic Denies easy bruising Allergic/Immunologic Denies wheezing FOR[facility]LY [facility] Medical History Amblyopia of right eye (Acute) Blind right eye (Acute) Carbuncle and furuncle of face (Acute) Cataract (lens) fragments in eye following cataract surgery, left eye (Acute) Constipation (Acute) Depression (Acute) Dyspnea on exertion (Acute) Hearing loss (Acute) History of bradycardia (Acute) History of chest pain (Acute) History of headache (Acute) History of hysterectomy (Acute) History of nuclear stress test (Acute) History of prosthetic unicompartmental arthroplasty of left knee (Acute) History of uterine fibroid (Acute) Hypertension (Acute) Hypoglycemia (Acute ~1969) Impaired vision (Acute) Insomnia, unspecified (Acute) Lumbago (Acute) Malaise and fatigue (Acute) Mitral valve disorder (Acute) Numbness and tingling of leg (Acute) Obesity (Acute) Osteoarthrosis, localized (Acute) Other specified disease of hair and hair follicles (Acute) Other symptoms involving digestive system (Acute) Primary osteoarthritis of left hip (Acute) Ptosis (Acute) Surgical History History of appendectomy (Acute ~1946) History of cardiac cath (Acute) History of cystoscopy (Acute) History of dilation and curettage (Acute) History of eye surgery (Acute ~1947) History of total right hip arthroplasty (Acute) Status post blepharoplasty of both eyes (Acute) Social History Smoking Status: Never smoker Social History Smoking Status: Never smoker Exam Narrative Exam Narrative: GENERAL: 78F appears stated age, rubbing RLQ, HEAD: Atraumatic. Normocephalic. No temporal or scalp tenderness. EYES: Pupils equal round and reactive. Extraocular motions intact. No scleral icterus. No injection or drainage. ENT: Nose without bleeding, purulent drainage or septal hematoma. Throat without erythema, tonsillar hypertrophy or exudate. Uvula midline. Airway patent. NECK: Trachea midline. No JVD or lymphadenopathy. Supple, nontender, no meningeal signs. CARDIOVASCULAR: Regular rate and rhythm without murmurs, gallops, or rubs. RESPIRATORY: Clear to auscultation. Breath sounds equal bilaterally. No wheezes, rales, or rhonchi. GASTROINTESTINAL: Abdomen soft,mild tenderness in RLQ, nondistended. No hepato- splenomegaly, or palpable masses. No guarding. EXTREMITIES: No clubbing, cyanosis, or edema. No joint tenderness, effusion, or edema noted. BACK: Nontender without deformity or crepitance. No flank tenderness. NEURO: AOx3. SKIN: No rash or erythema. Initial Vital Signs Initial Vital Signs: Vital Signs Temperature 98.7 F 01/16/19 16:30 Pulse Rate 58 L 01/16/19 16:30 Respiratory Rate 17 01/16/19 16:30 Blood Pressure 154/69 H 01/16/19 16:30 Pulse Oximetry 96 01/16/19 16:30 Course Orders Ordered: ED Orders 01/16/19 17:06 CT abdomen pelvis w con Stat Complete Blood Count AUTO DIFF Stat Comprehensive Metabolic Panel Stat Lipase Stat Partial Thromboplastin Time Stat Prothrombin Time INR Stat 01/16/19 17:30 Urine Culture Stat Urine Microscopic Stat Vital Signs - 8 hr 01/16/19 16:30 01/16/19 18:10 01/16/19 19:25 Temperature 98.7 F Pulse Rate 58 L 60 63 Respiratory Rate 17 16 19 Blood Pressure 154/69 H Blood Pressure [Left Arm] 172/73 H 155/58 H Pulse Oximetry 96 97 98 MDM - Abdominal Pain Lab Data Result diagrams: 01/16/19 17:06 01/16/19 17:06 Lab Results 01/16/19 01/16/19 01/16/19 Range/Units 17:06 17:06 17:06 WBC 9.5 (4.5-11.0) X10^3/uL RBC 4.44 (4.0-5.2) X10^6/uL Hgb 13.8 (12.0-16.0) g/dL Hct 39.8 (36-46) % MCV 89.8 (80-100) fL MCH 31.0 (26-34) PG MCHC 34.6 (30-36) % RDW 13.7 (11.6-14.8) % Plt Count 294 (150-400) X10^3/uL Neut % (Auto) 66.2 (50-75) % Lymph % (Auto) 25.1 (25-40) % [place] % (Auto) 5.4 (3-14) % Eos % (Auto) 2.4 (2-4) % Baso % (Auto) 0.9 (0-2) % Neut # (Auto) 6300 (6698-4177) /uL Lymph # (Auto) 2400 (7716-8889) /uL [place] # (Auto) 500 (0-900) /uL Eos # (Auto) 200 (0-450) /uL Baso # (Auto) 100 (0-100) /uL PT 11.5 (10.1-12.7) SECONDS INR 1.0 (0.9-1.3) APTT 34 (26.4-36.2) SECONDS Sodium 138 (137-145) mmol/L Potassium 3.5 (3.4-5.1) mmol/L Chloride 96 L (98-107) mmol/L Carbon Dioxide 32 (22-32) mmol/L BUN 24 H (7-17) mg/dL Creatinine 0.90 (0.52-1.04) mg/dL Estimated GFR > 60.0 (>60) mL/min BUN/Creatinine Ratio 26.7 H (6-22) Glucose 97 (80-110) mg/dL Calcium 9.6 (8.4-10.2) mg/dL Total Bilirubin 0.5 (0.2-1.3) mg/dL AST 22 (14-36) IU/L ALT 17 (9-52) IU/L Alkaline Phosphatase 92 (38-126) U/L Total Protein 7.8 (6.3-8.2) g/dL Albumin 4.5 (3.5-5.0) g/dL Globulin 3.3 (1.7-4.1) g/dL Albumin/Globulin Ratio 1.4 (1.0-2.8) Lipase 95 (23-300) U/L Urine RBC (0-5/HPF) Urine WBC (0-5/HPF) Urine Bacteria (None) Ur Culture Indicated? 01/16/19 Range/Units 17:30 WBC (4.5-11.0) X10^3/uL RBC (4.0-5.2) X10^6/uL Hgb (12.0-16.0) g/dL Hct (36-46) % MCV (80-100) fL MCH (26-34) PG MCHC (30-36) % RDW (11.6-14.8) % Plt Count (150-400) X10^3/uL Neut % (Auto) (50-75) % Lymph % (Auto) (25-40) % [place] % (Auto) (3-14) % Eos % (Auto) (2-4) % Baso % (Auto) (0-2) % Neut # (Auto) (0730-7328) /uL Lymph # (Auto) (6273-3138) /uL [place] # (Auto) (0-900) /uL Eos # (Auto) (0-450) /uL Baso # (Auto) (0-100) /uL PT (10.1-12.7) SECONDS INR (0.9-1.3) APTT (26.4-36.2) SECONDS Sodium (137-145) mmol/L Potassium (3.4-5.1) mmol/L Chloride (98-107) mmol/L Carbon Dioxide (22-32) mmol/L BUN (7-17) mg/dL Creatinine (0.52-1.04) mg/dL Estimated GFR (>60) mL/min BUN/Creatinine Ratio (6-22) Glucose (80-110) mg/dL Calcium (8.4-10.2) mg/dL Total Bilirubin (0.2-1.3) mg/dL AST (14-36) IU/L ALT (9-52) IU/L Alkaline Phosphatase (38-126) U/L Total Protein (6.3-8.2) g/dL Albumin (3.5-5.0) g/dL Globulin (1.7-4.1) g/dL Albumin/Globulin Ratio (1.0-2.8) Lipase (23-300) U/L Urine RBC None seen (0-5/HPF) Urine WBC 5-10/hpf H (0-5/HPF) Urine Bacteria None seen (None) Ur Culture Indicated? Specimen cultured Point of care testing: Urine Dip Bedside Urine Glucose Negative Bedside Urine Bilirubin - Negative Bedside Urine Ketone - Negative Urine Specific [place] 1.015 Bedside Urine Occult Blood - Negative Bedside Urine pH 7.0 Bedside Urine Protein - Negative Bedside Urine Urobilinogen - Negative Bedside Urine Nitrite - Negative Bedside Urine Leukocytes + [address] scan - abdomen: Radiologist's impression: [address] [address] [address] Scan Report Signed Patient: Kathryn DelgadilloMR#: [id number] : 1940Acct:[id number] Age/Sex: 78 / FDate of Service: 01/16/19 Loc: ED Accession Number: [id number] Procedure: CT abdomen pelvis w con Ordering Provider: Rome Tinajero D.O. PROCEDURE: CT ABDOMEN PELVIS W CON INDICATIONS: severe RLQ pain, sent by outside provider TECHNIQUE: After the administration of intravenous contrast, 5 mm thick sections acquired from the diaphragm to the symphysis. 5 mm coronal and sagittal reformats were acquired. For radiation dose reduction, the following was used: automated exposure control, adjustment of mA and/or kV according to patient size. COMPARISON: None. FINDINGS: Image quality: Excellent. ABDOMEN: Lung bases: Mild bibasilar atelectasis. Scarring versus subsegmental atelectasis at the lingula. Heart size is normal. Solid organs: Liver is normal in size and enhancement. Gallbladder is unremarkable in CT appearance. Biliary system is non dilated. Pancreas enhances normally. Spleen is normal in size and enhancement. No right adrenal nodules. Incompletely characterized 1.1 cm left adrenal nodule. Kidneys demonstrate normal size and enhancement, without hydronephrosis. There is a 4.1 cm simple right renal cyst. Peritoneum and bowel: Bowel loops demonstrate normal wall thickness and caliber. Scattered colonic diverticula without acute inflammatory changes. Subtle stranding near the level of the urinary bladder is favored to represent artifact secondary to beam hardening by the adjacent bilateral hip arthroplasty hardware. No free fluid or air. Nodes and vessels: No retroperitoneal or mesenteric adenopathy by size criteria. Aorta and inferior vena cava are normal in size. Miscellaneous: Small fat-containing periumbilical hernia without acute inflammation. PELVIS: Genitourinary: Bladder wall thickness is normal. Status post hysterectomy. There is a well-circumscribed 6 cm fluid attenuation cystic lesion in the region of the left ovary/adnexa without adjacent inflammatory stranding. Miscellaneous: No inguinal hernias or adenopathy. Bones: No suspicious bony lesions. No acute vertebral body compression fractures. Moderate multilevel lumbar spondylosis with vacuum disc phenomenon at L4-5 and L5-S1. Status post bilateral hip arthroplasties resulting in moderate streak and beam hardening artifact of the lower pelvis. This limits evaluation of the lower pelvic structures. IMPRESSION: 1. CT abdomen and pelvis without acute abnormalities to explain patient's right lower quadrant abdominal pain. 2. Scattered colonic diverticulosis without acute diverticulitis. 3. Incompletely characterized 1.1 cm left adrenal nodule. Recommend dedicated outpatient multiphasic contrast-enhanced CT of the abdomen (adrenal mass protocol) for further characterization. 4. A 6 cm fluid attenuation cystic lesion in the left adnexa without adjacent inflammatory stranding. Consider further characterization with pelvic ultrasound if any pelvic pain. Otherwise, recommend imaging surveillance with pelvic ultrasound in one year. 5. The appendix and uterus are not visualized and compatible with reported history of prior appendectomy and hysterectomy. Dictated by: Raul Jordan M.D. on 01/16/2019 at 18:13 Approved by: Raul Jordan M.D. on 01/16/2019 at 18:29 Discharge Plan Departure Patient Disposition: Home Clinical Impression: Abdominal pain, acute, right lower quadrant, Acute UTI Discharge Date/Time: 01/16/19 20:08 Interventions: ED Discharge Assessment Last Done: 01/16/19 20:08 Instructions: DI for Urinary Tract Infection (UTI), DI for Abdominal Pain-Adult Activity Restrictions/Additional Instructions: *You have been diagnosed with [ acute right lower quadrant pain, urinary tract infection ] *What to do: *Take medications as directed *Follow up with your primary care provider in 2-3 days, call for an appointment. Let them know you were seen in the Emergency Department and that we ask that you be seen in follow up *Return to ER if you should have any new, worsening or concerning symptoms, such as [worsening pain, persistent vomiting, fever over 101F, shaking chills] Prescriptions: New cephalexin [Keflex] 500 mg capsule 500 mg PO QID 7 Days Qty: 28 RF: 0 ondansetron 4 mg tablet,disintegrating 4 mg PO TID-QID PRN (Reason: nausea and vomiting) Qty: 10 RF: 0 oxycodone 5 mg tablet 5 mg PO Q4-6H PRN (Reason: pain) Qty: 10 RF: 0 No Action trazodone 150 mg Tablet 150 mg PO DAILY Qty: 0 RF: 0 naproxen sodium [Aleve] 220 MG tablet 440 mg PO PRN Qty: 0 RF: 0 CHOLECALCIFEROL (D3-5) 2,000 iu PO QDAY Qty: 0 RF: 0 hydrochlorothiazide 25 mg Tablet 25 mg PO DAILY RF: 0 paroxetine HCl [Paxil] 40 mg Tablet 40 mg PO DAILY RF: 0 losartan 100 mg Tablet 100 mg PO DAILY RF: 0 biotin 2,500 mcg Capsule 2,500 mcg PO DAILY RF: 0 clindamycin HCl 300 mg Capsule 600 mg PO SEEINSTR RF: 0 acetaminophen 325 mg Tablet 975 mg PO TID Qty: 0 RF: 0 aspirin 81 mg Tablet,Delayed Release (Dr/Ec) 81 mg PO BID Qty: 0 RF: 0 oxycodone 5 mg Tablet 5 mg PO Q3HR PRN (Reason: Pain, Moderate (4-6)) Qty: 0 RF: 0 hydroxyzine pamoate 25 mg Capsule 25 mg PO Q6HR PRN (Reason: Spasms) Qty: 0 RF: 0 neomycin-polymyxin B-dexameth 3.5 mg/g-10,000 unit/g-0.1 % ointment RF: 0 amlodipine 10 mg tablet 10 mg PO DAILY RF: 0 valsartan 320 mg tablet 320 mg PO DAILY RF: 0 metoprolol tartrate 50 mg tablet 50 mg PO BID RF: 0 Referrals: Avelino Chin MD [Primary Care Provider] -
[2019-01-16 19:25] VITALS: BP 155/58; PULSE 63; RESP 19; O2SAT 98
== END 2019-01-16 20:08 | disposition home or self-care (01) ==
PROVIDERS: Emergency Provider Emergency Medicine; Family Provider Internal Medicine; PCP Internal Medicine
DX: R10.31 Right lower quadrant pain (principal); N39.0 Urinary tract infection, site not specified
CPT/HCPCS: 36591; 74177; 80053; 81003; 81015; 83690; 85025; 85610; 85730; 87086; 99282; 99284; Q9967

== ENCOUNTER → 2019-02-21 10:51 | Outpatient (CLI) | payer MEDICARE, OTHER, SELFPAY ==
[2018-04-04 12:37] VITALS: BMI 35.3
--- NOTE | 2019-02-21 | DI.CT.S_ITS ---
PROCEDURE: CT ABDOMEN WO/W CON INDICATIONS: Other specified disorders of adrenal gland TECHNIQUE: Noncontrast 3 mm thick sections acquired from the diaphragms to the iliac crests. After the administration of intravenous contrast, 3 mm thick venous-phase and 10-minute delayed images acquired from the diaphragms to the iliac crests. For radiation dose reduction, the following was used: automated exposure control, adjustment of mA and/or kV according to patient size. COMPARISON: [facility], CT, CT ABDOMEN PELVIS W CON, 01/16/2019, 17:30. FINDINGS: Image quality: Excellent. Lung bases: Lung bases are clear. Heart size is normal. Adrenal glands: The previously identified 1.1 cm left adrenal gland nodule is again seen, has not enlarged, and was evaluated utilizing 3 phase imaging technique, calculating the relative and absolute washout values. Absolute washout value of greater than 74% was documented for this nodule and the relative washout value of 69% also was documented. Both of these values are consistent with diagnosis of benign adrenal adenoma. Precontrast radiodensity was 3.0 Hounsfield units, arterial phase contrast enhancement yielded a 51.8 Hounsfield unit value, in the washout phase yielded a 15.9 Hounsfield unit value. Solid organs: Liver is normal in size and enhancement. Gallbladder appears normal. Biliary system is non dilated. Pancreas enhances normally. Spleen is normal in size and enhancement. Kidneys are normal in size and enhancement. No hydronephrosis or nephrolithiasis. Peritoneum and bowel: Unenhanced bowel loops are normal in caliber and wall thickness. No free fluid or air. Nodes and vessels: No retroperitoneal or mesenteric adenopathy by size criteria. Aorta and inferior vena cava are normal in size. Miscellaneous: No ventral hernias. Bones: No suspicious bony lesions. No vertebral body compression fractures. IMPRESSION: Left-sided small stable appearing benign adrenal adenoma. No followup recommended. Dictated by: Denys Dill M.D. on 02/21/2019 at 16:54 Approved by: Denys Dill M.D. on 02/21/2019 at 17:05
[2019-02-21 12:30] LABS: BUN Creatinine Ratio 17.8 (6-22); Blood Urea Nitrogen 16 mg/dL (7-17); Estimated Glomerular Filt Rate > 60.0 mL/min (>60)
== END ==
PROVIDERS: Family Provider Internal Medicine; PCP Internal Medicine; Visit Provider Family Medicine
DX: E27.8 Other specified disorders of adrenal gland (principal)
CPT/HCPCS: 36415; 74170; 82565; 84520; Q9967

== ENCOUNTER → 2019-03-14 08:40 | Outpatient (CLI) | payer MEDICARE, OTHER, SELFPAY ==
[2018-04-04 12:37] VITALS: BMI 35.3
[2019-03-14 09:33] LABS: BUN Creatinine Ratio 23.3 (6-22); Blood Urea Nitrogen 21 mg/dL (7-17); Calcium 9.3 mg/dL (8.4-10.2); Carbon Dioxide 32 mmol/L (22-32); Chloride 96 mmol/L (98-107); Cholesterol 190 mg/dL (140-199); Estimated Glomerular Filt Rate > 60.0 mL/min (>60); Glucose 147 mg/dL (80-110); HDL Cholesterol 52 mg/dL (40-60); HEMOLYSIS < 15 (0-50); LDL Cholesterol Calculated 114 mg/dL (<100); Magnesium 1.8 mg/dL (1.6-2.3); Potassium 3.8 mmol/L (3.4-5.1); Sodium 138 mmol/L (137-145); Triglycerides 119 mg/dL (35-150)
== END ==
PROVIDERS: PCP Internal Medicine; Visit Provider Specialist
DX: I10 Essential (primary) hypertension (principal); I48.0 Paroxysmal atrial fibrillation
CPT/HCPCS: 36415; 80048; 80061; 83735

== ENCOUNTER → 2019-09-18 08:52 | Outpatient (CLI) | payer MEDICARE, OTHER, SELFPAY ==
[2018-04-04 12:37] VITALS: BMI 35.3
--- NOTE | 2019-09-18 | DI.ECHO.S_ITS ---
[facility]---------[facility] +---------+ : : [address] : : : : [id number] : : : : Phone: [phone] Echocardiogram Report + + :Name: CLEVELAND YOUNGBLOOD Study Date: 09/18/2019 Height: 66 in : :[facility] Weight: 210 lb : : Gender: Female BSA: 2.0 m2 : :: 1940 Age: 79 yrs BP: 132/82 mmHg: :Reason For Study: Mitral Insufficiency : :Ordering Physician: Evangelista : :Shahab Performed By: Brooke Baez : :Referring: EVANGELISTA JOSÉ : + + Interpretation Summary The left ventricle is normal in size, wall thickness, and systolic function without any focal wall motion abnormalities with the ejection fraction estimated to be 65-70% and an estimated left ventricular end diastolic volume of 62 ml. Diastolic function could not be accurately assessed due to contradictory data. The right ventricle is normal in size and function. The right ventricular systolic pressure is estimated to be at least 36 mmHg based on an estimated right atrial pressure of 3 mm Hg. Both atria are normal in size. The mitral valve leaflets appear mildly thickened, but open well. While there is an impressive jet of mitral regurgitation, it is likely moderate mitral regurgitation given the normal left atrial size. There is mild systolic flow blunting in the pulmonary veins. There is moderate tricuspid regurgitation. There is mild aortic valve sclerosis with mild to moderate aortic regurgitation. The patient was in sinus bradycardia with heart rates between 51-61 bpm during the exam. Procedure: A two-dimensional transthoracic echocardiogram with color flow and Doppler was performed. The study quality was technically adequate. There is no prior echocardiogram noted for this patient. The patient was in sinus bradycardia with heart rates between 51-61 bpm during the exam. Left Ventricle: The left ventricle is normal in size, wall thickness, and systolic function without any focal wall motion abnormalities. The estimated left ventricular end diastolic volume is 62 ml. The ejection fraction is estimated to be 65-70%. Diastolic function could not be accurately assessed due to contradictory data. Right Ventricle: The right ventricle is normal in size and function. Atria: Both atria are normal in size. There is no Doppler evidence for an interatrial shunt. Mitral Valve: The mitral valve leaflets appear mildly thickened, but open well. There is moderate mitral regurgitation. Aortic Valve: The aortic valve is trileaflet. There is mild aortic valve sclerosis. The aortic valve is slightly calcified. The aortic valve opens well. There is no aortic valve stenosis. There is mild to moderate aortic regurgitation. Tricuspid Valve: The tricuspid valve is normal in structure and function. There is moderate tricuspid regurgitation. The right ventricular systolic pressure is estimated to be at least 36 mmHg based on an estimated right atrial pressure of 3 mm Hg. Pulmonic Valve: The pulmonic valve is normal in structure and function. There is a trace or physiologic amount of pulmonic regurgitation. Great Vessels: The aortic root is normal size. The dimensions of the ascending aorta are normal. The IVC is of normal diameter and collapses greater than 50% with a sniff. This suggests a low right atrial pressure of 3 mm Hg. Pericardium/ Pleura There is no pericardial effusion. There is no pleural effusion. MMode/2D Measurements & Calculations LVIDd: 4.7 cm LVOT diam: 2.0 cm LVIDs: 2.8 cm Ao root diam: 3.2 cm FS: 41.0 % asc Aorta Diam: 3.2 cm EPSS: 0.87 cm Ao Arch Diam (Prox Trans): 2.3 cm IVSd: 1.0 cm LVPWd: 0.90 cm LV mir. diameter/BSA (cm/m^2): 2.3 LV sys. diameter/BSA (cm/m^2): 1.4 LA A2 area: 19.5 cm2 RA long axis: 5.6 cm LA A4 area: 15.5 cm2 RA area: 14.1 cm2 LA length (vol): 5.0 cm RA vol: 30.0 ml LA vol: 50.8 ml RA : 14.7 ml/m2 LA vol index: 24.9 ml/m2 IVC diam: 0.75 cm RVD1 (basal): 3.1 cm TAPSE: 2.1 cm Doppler Measurements & Calculations Ao V2 max: 140.1 cm/sec LVOT Max Andrew: 111.4 cm/sec Ao V2 mean: 89.3 cm/sec LV V1 max P.0 mmHg Ao max P.9 mmHg LV V1 VTI: 29.6 cm Ao mean P.7 mmHg VIPIN(I,D): 2.8 cm2 Ao V2 VTI: 31.7 cm VIPIN(V,D): 2.4 cm2 sev ratio: 0.93 VIPIN indexed to BSA (cm^2/m^2): 1.4 AI P1/2t: 839.1 msec AI dec slope: 120.9 cm/sec2 MV E max andrew: 107.9 cm/sec TR max andrew: 287.1 cm/sec MV A max andrew: 50.3 cm/sec TR max P.0 mmHg MV E/A: 2.1 PA V2 max: 86.2 cm/sec Med Peak E' Andrew: 5.9 cm/sec PA V2 mean: 53.9 cm/sec E/E' med: 18.2 PA mean P.4 mmHg Lat Peak E' Andrew: 8.8 cm/sec PA pr(Accel): 14.6 mmHg E/E' lat: 12.2 PA Accel Time: 0.14 sec E/e' average: 15.2 MV dec time: 0.21 sec MV P1/2t: 65.3 msec MVA(VTI): 2.8 cm2 MR ERO: 0.22 cm2 MV V2 mean: 56.6 cm/sec MV P1/2t max andrew: 109.9 cm/sec MV mean P.6 mmHg MVA(P1/2t): 3.4 cm2 MV V2 VTI: 32.4 cm MR PISA: 3.1 cm2 SV(LVOT): 89.0 ml MR flow rate: 113.2 cm3/sec MR PISA radius: 0.70 cm Reading Physician:MARLENY
== END ==
PROVIDERS: PCP Internal Medicine; Referring Provider Specialist; Visit Provider Specialist
DX: I08.3 Combined rheumatic disorders of mitral, aortic and tricuspid valves (principal); R00.1 Bradycardia, unspecified
CPT/HCPCS: 93306

== ENCOUNTER → 2020-09-25 09:20 | Outpatient (CLI) | payer MEDICARE, OTHER, SELFPAY ==
[2018-04-04 12:37] VITALS: BMI 35.3
[2020-09-25 10:56] LABS: Alanine Aminotransferase 13 IU/L (<35); Albumin Globulin Ratio 1.3 (1.0-2.8); Alkaline Phosphatase 83 U/L (38-126); Aspartate Aminotransferase 21 IU/L (14-36); BUN Creatinine Ratio 18.1 (6-22); Bilirubin Total 0.3 mg/dL (0.2-1.3); Blood Urea Nitrogen 17 mg/dL (7-17); Calcium 9.3 mg/dL (8.4-10.2); Carbon Dioxide 33 mmol/L (22-32); Chloride 104 mmol/L (98-107); Estimated Glomerular Filt Rate 57.2 mL/min (>60); Glucose 110 mg/dL (80-110); HEMOLYSIS < 15 (0-50); Magnesium 2.1 mg/dL (1.6-2.3); Potassium 3.9 mmol/L (3.4-5.1); Sodium 141 mmol/L (137-145)
[2020-09-27 19:07] LABS: Cholesterol, Total 207 mg/dL (100-199); HDL-Cholesterol 63 mg/dL (>39); LDL Particle 1480 nmol/L (<1000); LDL Size 21.7 nm (>20.5); LDL-Cholsterol 126 mg/dL (0-99); LP-IR Score <25 (<=45); Small LDL- Particle 469 nmol/L (<=527); Triglycerides 103 mg/dL (0-149)
== END ==
PROVIDERS: PCP Internal Medicine; Referring Provider Specialist; Visit Provider Specialist
DX: I10 Essential (primary) hypertension (principal); E78.49 Other hyperlipidemia; I48.0 Paroxysmal atrial fibrillation
CPT/HCPCS: 36415; 80053; 80061; 83704; 83735

== ENCOUNTER → 2021-01-28 12:23 | Outpatient (CLI) | payer MEDICARE, OTHER, SELFPAY ==
[2018-04-04 12:37] VITALS: BMI 35.3
[2021-01-28 14:48] LABS: Cancer Antigen 125 < 5.5 U/mL (0-35)
[2021-01-30 11:05] LABS: Human Epididymis Prot 4 75.9 pmol/L (0.0-96.9)
== END ==
PROVIDERS: PCP Family Medicine; Referring Provider Obstetrics & Gynecology; Visit Provider Obstetrics & Gynecology
DX: N94.89 Other specified conditions associated with female genital organs and menstrual cycle (principal); R19.09 Other intra-abdominal and pelvic swelling, mass and lump
CPT/HCPCS: 36415; 86304; 86305

== ENCOUNTER → 2021-03-17 10:42 | Outpatient (CLI) | payer MEDICARE, OTHER, SELFPAY ==
[2018-04-04 12:37] VITALS: BMI 35.3
[2021-03-17 18:22] LABS: COVID19 -Nasal RAPID Negative (Negative)
== END ==
PROVIDERS: PCP Family Medicine; Visit Provider Obstetrics & Gynecology
DX: Z20.822 Contact with and (suspected) exposure to COVID-19 (principal); Z01.812 Encounter for preprocedural laboratory examination
CPT/HCPCS: 87635

== ENCOUNTER 2021-03-18 08:41 | Day surgery (SDC) | payer MEDICARE, OTHER, SELFPAY ==
[2018-04-04 12:37] VITALS: BMI 35.3
[2021-03-13 15:00] VITALS: BMI 30.2
[2021-03-18] VITALS (8 sets, daily range): BP systolic 132–166; BP diastolic 56–74; PULSE 52–83; RESP 10–16; TEMP 36–36.8; O2SAT 89–97; BMI 29.0
--- NOTE | 2021-03-18 | PATH_ITS ---
[facility] Accession Number: [id number] . 01 Material submitted: . TUBE/OVARY - BILATERAL FALLOPIAN TUBES AND OVARIES . 02 Diagnosis: Bilateral Fallopian Tubes and Ovaries, Bilateral Salpingo-oophorectomy: . 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 Small right ovary adherent to right fallopian tube; negative for atypia or malignancy. Right fallopian tube with multiple benign paratubal cysts (1-15 mm); negative for atypia or malignancy. [facility] 03/20/2021 1631 Local . 02 Electronically signed: . Amy Negro MD, Pathologist NPI- [id number] . 01 Gross description: . The specimen is received in formalin, labeled bilateral ovaries and fallopian tubes and consists of a 5.0 x 5.0 x 3.0 cm intact cyst with a biggs wrinkled external surface and adherent biggs-pink soft tissue, possibly containing adherent fallopian tube. The specimen is inked blue and sectioned to reveal a biggs wrinkled inner lining with a 0.2 x 0.2 x 0.2 cm biggs-white calcified nodule. The cyst contains a yellow-tinged serous fluid. No papillary excrescences are identified. Also received is a 4.0 cm in length by 0.8 cm in diameter fallopian tube with a biggs-pink smooth to ragged serosa, possibly adherent ovary, and multiple paratubal cysts ranging from 0.1-1.5 cm. Sectioning reveals a biggs-pink mucosa and a stellate lumen measuring 0.4 cm in diameter. Test Examiner sections are submitted. . A1: Left ovarian cyst wall. A2: Left ovarian cyst wall, possible adjacent fallopian tube and adnexal soft tissue. A3: Right fallopian tube. A4: Right fallopian tube, possible right ovary, and right adnexal soft tissue. (EA:[id number]) (SE:[id number]) /MRV 03/20/2021 1631 Local . 02 Pathologist provided ICD-10: N83.202 . 02 CPT . 931944 Performed at: 01 [facility] [address] [address], [place], [place] [id number] MD Kirill Jerome MD Phone: [phone] Performed at: 02 [facility] [id number] [place] [id number] MD Shelia Mercado MD Phone: [phone]
[2021-03-18] MEDS: LACTATED RINGERS 1,000 ML 42 ML IV (09:09)
--- NOTE | 2021-03-18 09:32 | PM.HP.1 ---
History of Present Illness History of Present Illness Date Patient Seen: 03/18/21 Time Patient Seen: 09:50 Chief complaint: SDC Narrative: Patient is an 80-year-old 2 para 2 with a left ovarian mass. 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 Brain tumor (~2018) Carbuncle and furuncle of face Carpal tunnel syndrome Cataract (lens) fragments in eye following cataract surgery, left eye Chronic back pain Constipation Depression (~1996) Dyspareunia (~1999) Dyspnea on exertion Fibroids (~1964) Hearing loss Heavy menstrual period History of bradycardia History of chest pain History of headache History of nuclear stress test History of urinary incontinence (~2009) Hypertension (~1979) Hypoglycemia (~1969) Impaired vision Insomnia, unspecified Lumbago Malaise and fatigue Measles (~1946) Mitral valve disorder Mumps (~1947) Numbness and tingling of leg Obesity Osteoarthrosis, localized Other specified disease of hair and hair follicles Other symptoms involving digestive system Painful menstrual periods Partial blindness Polio (~1947) Primary osteoarthritis of left hip Ptosis Rupture of uterus (~1968) Skin tag Surgical History (Updated 03/02/21 @ 18:41 by Yesi Norman) Anesthesia History of appendectomy (~1946) History of cardiac cath History of cystoscopy History of dilation and curettage History of eye surgery (~1947) History of hysterectomy History of prosthetic unicompartmental arthroplasty of left knee History of total right hip arthroplasty History of uterine fibroid Status post blepharoplasty of both eyes Family & Social History Family History (Updated 03/02/21 @ 18:44 by Yesi Norman) Father Cancer Mother COPD (chronic obstructive pulmonary disease) Brother Diabetes mellitus Grandfather Stroke Grandfather Flu Grandmother Cancer Social History: household members spouse Tobacco & Substance use: Smoking Status Never smoker alcohol intake former alcohol intake frequency 0-2 drinks per day Substance Use Type does not use Meds Home Medications and Allergies Home Medications Medication Instructions Recorded Confirmed Type CHOLECALCIFEROL (D3-5) 2,000 iu PO QDAY #0 03/23/11 03/18/21 History trazodone 150 mg tablet 150 mg PO DAILY #0 03/23/11 03/18/21 History paroxetine HCl 40 mg tablet (Paxil) 40 mg PO DAILY 03/23/18 03/18/21 History acetaminophen 325 mg tablet 975 mg PO TID #0 tab 04/05/18 03/18/21 Rx valsartan 320 mg tablet 320 mg PO DAILY 01/16/19 03/18/21 History amlodipine 10 mg tablet 5 mg PO DAILY tab 01/30/21 03/18/21 History carboxymethylcellulose sodium 0.5 1 drp EYE-LEFT DAILY 01/30/21 03/18/21 History % eye drops furosemide 20 mg tablet 10 mg PO QAM 01/30/21 03/18/21 History magnesium oxide 400 mg PO DAILY 01/30/21 03/18/21 History potassium chloride 10 mEq 10 meq PO DAILY 01/30/21 03/18/21 History tablet,extended release(part/cryst) rosuvastatin 10 mg tablet 10 mg PO DAILY 01/30/21 03/18/21 History metoprolol tartrate 25 mg tablet 12.5 mg PO BID 03/17/21 03/18/21 History Miralax PO PRN PRN 03/18/21 History aspirin 81 mg tablet,delayed 81 mg PO DAILY 03/18/21 03/18/21 History release Allergies Allergy/AdvReac Type Severity Reaction Status Date / Time Morphine Allergy Intermediate Terrible Uncoded 03/18/21 08:51 itch all over Hydromorphone AdvReac Severe Projectile Uncoded 03/18/21 08:51 vomiting Erythromycin AdvReac Mild N&V Uncoded 03/18/21 08:51 Exam Vital Signs (past 8 hours): - 03/18/21 08:56 Temperature 97.1 F L Pulse Rate 58 L Respiratory Rate 16 Blood Pressure 143/67 H Oxygen Delivery Method Room Air Narrative Exam Narrative: HEENT: No thyromegaly, no anterior cervical or supraclavicular lymphadenopathy. Lungs:Clear to auscultation bilaterally, no wheezes. Cardiovascular: Regular rate and rhythm, no murmurs, rubs, or gallops. Abdomen: Well-healed scars. No hepatosplenomegaly. No masses palpable. External genitalia: Atrophic Vagina: Atrophic Cervix: Absent Bimanual exam: Left adnexal fullness and tenderness Assessment & Plan Assessment & Plan narrative: Assessment: 80-year-old 2 para 2 with a left ovarian mass Normal CA 125 and HE-4 Plan: Laparoscopic removal of both tubes and ovaries The risks, benefits, and alternatives to the procedure were explained to the patient. The risks including bleeding, infection, injury to the bowel, bladder, or ureters. She understands these risks and agrees to proceed. A full par Q was held and consent form was signed. COVID-19 COVID-19 status: Negative Result date/Date tested (Pos, Neg/Pending): 03/17/21 Time Spent With Patient Time with patient: less than 30 minutes Critical Care time: I spent a total of [] minutes of critical care time on this patient's care today; this time is exclusive of procedural time.
--- NOTE | 2021-03-18 09:35 | PM.PREOP ---
Pre-operative Note COVID-19 COVID-19 status: Negative Result date/Date tested (Pos, Neg/Pending): 03/17/21 Interval Note History & Physical reviewed/Exam performed by Physician: Yes Changes to H&P: No H&P completed within 30 days and has changed as indicated here:: 03/18/21
[2021-03-18] MEDS: ACETAMINOPHEN 325 MG TABLET 975 MG PO (09:39)
--- NOTE | 2021-03-18 10:15 | SUR.OPER ---
Lithotomy on padded OR bed, head on pillow, arms secured on padded arm boards at <90 degrees abduction. Legs secured in padded yellow fins stirrups.
[2021-03-18] MEDS: BUPIVACAINE 0.5% (PF) VIAL 30 ML INJ (10:29)
[2021-03-18] MEDS: EPINEPHrine 1 MG/ML 0.15 MG INJ (10:30)
--- NOTE | 2021-03-18 10:38 | SUR.OPER ---
glasses IN LABELED BAG TO PACU WITH PATIENT
--- NOTE | 2021-03-18 11:06 | PM.GYNOP.1 ---
Operative Date/Time/Diagnoses Date of procedure: 03/18/21 Time of procedure: 11:06 Pre-op diagnosis: Left ovarian mass Post-op diagnosis: same Procedure & Clinicians Procedure: Procedures Operation Date: 03/18/21 09:45 Actual Procedure Side Surgeon p Laparoscopic Salpingo-Oophorectomy, LYSIS OF ADHESIONS Bilateral Barb Banerjee MD Indications: Left ovarian mass Surgeon: Barb Banerjee Anesthesia Type: General and Local Operative Notes Findings: 7 cm left ovarian cyst Normal tubes bilaterally Normal right ovary Normal liver and gallbladder Bowel to vaginal cuff adhesions Closure Type: primary Specimen(s): left tube & ovary, right tube & ovary and other (left cyst fluid) Estimated blood loss (mL): 10 Blood products transfused: none Procedure in detail: After informed consent was obtained, the patient was taken to the operating room where she was placed in the dorsal supine position. After adequate general endotracheal anesthesia was achieved, she was placed in the dorsal lithotomy position, and prepped draped in the usual sterile fashion. A time-out was performed. A moistened sponge stick was placed into the vagina. Attention was then turned to the abdomen where 6 cc of 0.5% Marcaine with epinephrine were injected just to the right above the umbilicus. A 5 mm incision was made. The Veress needle was placed into the peritoneal cavity, and its placement confirmed by aspiration and drop test. The abdominal cavity was insufflated with 3.3 L of CO2. The Veress needle was removed. A 5 mm trocar was placed without difficulty. Two other incisions were made 4 cm lateral to the midline after 6 cc of 0.5% Marcaine with epinephrine were injected. Two 5 mm trocars were placed under direct visualization. The probe was used to identify the left ovary. There was found to be an adhesion between and epiploic appendices and the vaginal cuff. This was taken down sharply with the Endo Thien. Hemostasis was achieved. The left ovary and tube were grasped with an atraumatic grasper. Using the PlasmaKinetic was settings of 40 w, the infundibulopelvic ligament on the left side was cauterized and cut. Hemostasis was achieved. The left tube and ovary were placed into the right lower quadrant. The right tube and ovary were grasped with an atraumatic grasper. Using the PlasmaKinetic was settings of 40 w, the infundibulopelvic ligament on the right side was cauterized and cut. Hemostasis was achieved. 6 cc of 0.5% Marcaine with epinephrine were injected through the previous incision above the pubic symphysis. A 12 mm incision was made. A 12 mm trocar was placed into the peritoneal cavity. A small endobag was placed through the suprapubic trocar. Both tubes and ovaries were placed into the bag. The edges of the bag were pulled up through the skin. Using a 30 cc syringe with a spinal needle, some fluid was drained out of the ovary and sent to cytology to decompress the ovary. The bag was brought up through the suprapubic incision without any spill. The fascia was reapproximated with 0 Vicryl in a running fashion. The abdomen was re-insufflated with 3.1 L of CO2. The pedicles were examined and were found to be hemostatic. The instruments were removed from the abdomen. The CO2 was allowed to escape. The suprapubic incision was closed on the subcutaneous layer with 2 simple interrupted sutures with 3-0 Vicryl. All of the incisions were closed with 4-0 Monocryl in a subcuticular fashion. Steri-Strips and Allevyn dressings were placed. The moistened sponge stick was removed from the vagina. Sponge, lap, and instrument counts were correct x2. The patient tolerated the procedure well, and was taken to PACU in stable condition. Complications: none Post-operative Condition: stable Disposition: PACU Plan for aftercare: Home after recovery
--- NOTE | 2021-03-18 12:01 | SUR.PHASEI ---
Assumed care of pt, dressings remained clean and dry, 02 weaned off. c/o 07/31 pain, refuses offer of pain meds.
== END 2021-03-18 12:45 | disposition home or self-care (01) ==
PROVIDERS: PCP Family Medicine; Referring Provider Obstetrics & Gynecology; Visit Provider Obstetrics & Gynecology
PROC: 0UT24ZZ Resection of Bilateral Ovaries, Percutaneous Endoscopic Approach (ICD-10-PCS; CPT 58661; principal; 2021-03-18 09:45)
DX: D27.1 Benign neoplasm of left ovary (principal); N73.6 Female pelvic peritoneal adhesions (postinfective); E66.9 Obesity, unspecified; Z68.35 Body mass index [BMI] 35.0-35.9, adult; R32 Unspecified urinary incontinence; I10 Essential (primary) hypertension; N83.8 Other noninflammatory disorders of ovary, fallopian tube and broad ligament
CPT/HCPCS: 58661; 87070; 87075; 87205; J0171; J0330; J1100; J1885; J2250; J2405; J3010

== ENCOUNTER → 2021-03-21 11:42 | Outpatient (CLI) | payer MEDICARE, OTHER, SELFPAY ==
[2018-04-04 12:37] VITALS: BMI 35.3
== END ==
PROVIDERS: PCP Family Medicine; Visit Provider Obstetrics & Gynecology
DX: N83.202 Unspecified ovarian cyst, left side (principal)
CPT/HCPCS: 88112

== ENCOUNTER → 2021-05-26 08:06 | Outpatient (CLI) | payer MEDICARE, OTHER, SELFPAY ==
[2018-04-04 12:37] VITALS: BMI 35.3
[2021-05-26 12:12] LABS: COVID19 -Nasal RAPID Negative (Negative)
== END ==
PROVIDERS: PCP Family Medicine; Visit Provider Nurse Practitioner Family
DX: Z20.822 Contact with and (suspected) exposure to COVID-19 (principal)
CPT/HCPCS: 87635; C9803

== ENCOUNTER → 2021-05-27 09:42 | Outpatient (CLI) | payer MEDICARE, OTHER, SELFPAY ==
[2018-04-04 12:37] VITALS: BMI 35.3
--- NOTE | 2021-05-27 17:54 | DI.NM.S_ITS ---
DATE OF SERVICE: PROCEDURE: Pharmacological perfusion study. DATE OF STUDY: May 27, 2021 INDICATIONS: Chest pain with underlying history of atrial fibrillation, hypertension hyperlipidemia. RADIOPHARMACEUTICAL: 24.6 millicurie technetium-99m Myoview IV was injected at stress and 12.7 millicurie technetium-99m Myoview IV was injected at rest. CARDIAC STRESS: The patient underwent pharmacological perfusion study under the supervision of an attending staff using standard Lexiscan as per protocol. The patient remained hemodynamically stable. No anginal symptoms. Baseline rhythm was sinus with first-degree AV block. During stress, no convincing ischemic changes seen. There PVCs were seen. RAW DATA: There is a increased breast shadow seen. GATED STUDY: Stress LV ejection fraction 90 percent without any obvious wall motion abnormalities. Resting end-diastolic volume is 79 mL. TID ratio 0.83, which is within normal limits. Lung/heart ratio 0.40, which is within normal limits. MYOCARDIAL PERFUSION SCAN: The stress supine and resting supine images revealed small size, mildly decreased perfusion of distal anterior wall, which got improved during stress prone images, suggestive of breast tissue attenuation artifact. No convincing ischemia or infarction pattern seen. CONCLUSION: I will call this study a normal myocardial perfusion study with evidence of breast tissue attenuation artifact which got improved during the stress prone images. Hyperdynamic LV function. No obvious ischemic changes on during stress test. No significant sustained arrhythmias. Overall low-risk myocardial perfusion scan. The patient had a perfusion study on March 21, 2018. At that time also the patient had normal myocardial perfusion. Post stress left ventricular ejection fraction was 90 percent. Overall this is a low-risk myocardial perfusion scan. Kathryn Delgadillo - MEGHANN/belinda/terrie doc#: [id number]/job#: [id number] dd: 05/27/2021 17:31:00 dt: 05/27/2021 17:41:00 DICTATING MD/COPIES TO: Sis Urban MD COPIES MNE: SOLITARIO;
== END ==
PROVIDERS: PCP Family Medicine; Referring Provider Specialist; Visit Provider Specialist
DX: R07.2 Precordial pain (principal); I48.91 Unspecified atrial fibrillation; I10 Essential (primary) hypertension; E78.5 Hyperlipidemia, unspecified
CPT/HCPCS: 78452; 93017; A9502; J2785

== ENCOUNTER → 2022-01-09 14:44 | Outpatient (CLI) | payer MEDICARE, OTHER, SELFPAY ==
[2018-04-04 12:37] VITALS: BMI 35.3
--- NOTE | 2022-01-09 | DI.ECHO.S_ITS ---
[facility] +---------+ : : [address] : : : : [id number] : : : : Phone: [phone]+ Echocardiogram Report + + :Name: CLEVELAND YOUNGBLOOD Study Date: 01/09/2022 Height: 66 in : :[facility] ReadingLocation: Weight: 164 lb : : Gender: Female BSA: 1.8 m2 : :: 1940 Age: 81 yrs BP: 152/71 mmHg: :Reason For Study: Atrial fibrillation : :Ordering Physician: ARNAV, : :EVANGELISTA Performed By: Dipesh Marquez : :Referring: EVANGELISTA JOSÉ : + + Interpretation Summary Left ventricular systolic function is normal with an estimated ejection fraction of 60 to 65% without focal wall motion abnormality and appears slightly less dynamic compared to the previous study. There is borderline LVH with normal left ventricular size which remain unchanged. There is probable normal diastolic function with probable normal filling pressures, also likely unchanged. The right ventricle appears normal in size and systolic function and appears slightly smaller compared to the previous study. Right ventricular systolic pressure is estimated at 30 mmHg with a CVP of 3 mmHg, and may be slightly lower compared to the previous study. Both atria are normal in size and grossly unchanged. There is probable moderate mitral and moderate tricuspid regurgitation, both appearing slightly less impressive compared to the previous study. There is mild aortic valve sclerosis with mild aortic insufficiency that remains unchanged. Procedure: A two-dimensional transthoracic echocardiogram with color flow and Doppler was performed. The study quality was technically adequate. Comparison is made with the echocardiogram of 09/18/2019. The patient was in normal sinus rhythm during the exam. Left Ventricle: The left ventricle is normal in size. Left ventricular wall thickness is at the upper limits of normal. There is mild proximal septal thickening noted. This is unchanged compared to the previous study. Left ventricular systolic function appears normal without focal wall motion abnormalities. The ejection fraction is estimated to be 60-65%. This is slightly less dynamic compared to the previous study. Diastolic parameters suggest probable normal left ventricular diastolic function and normal filling pressures. This is likely unchanged compared to the previous study. Right Ventricle: The right ventricle is normal in size and function. This is slightly smaller compared to the previous study. Atria: Both atria are normal in size. This is unchanged compared to the previous study. The interatrial septum grossly appears intact with no obvious evidence for an atrial septal defect. Mitral Valve: The mitral valve leaflets appear mildly thickened, but open well. The mitral valve leaflets are slightly calcified. There is moderate mitral regurgitation. This is slightly less impressive compared to the previous study. Aortic Valve: The aortic valve is slightly calcified. The aortic valve opens well. There is mild aortic regurgitation. This is unchanged compared to the previous study. Tricuspid Valve: The tricuspid valve is normal in structure and function. There is moderate tricuspid regurgitation. This is slightly less prominent compared to the previous study. The right ventricular systolic pressure is estimated to be at least 30 mmHg based on an estimated right atrial pressure of 3 mm Hg. Pulmonic Valve: The pulmonic valve is not well visualized. Great Vessels: The aortic root is normal size. The ascending aorta could not be visualized. The IVC is of normal diameter and collapses greater than 50% with a sniff. This suggests a low right atrial pressure of 3 mm Hg. Pericardium/ Pleura There is no pericardial effusion. There is no pleural effusion. MMode/2D Measurements & Calculations LVIDd: 4.6 cm LVOT diam: 2.0 cm LVIDs: 3.0 cm Ao root diam: 3.1 cm FS: 34.9 % IVSd: 1.0 cm LVPWd: 1.0 cm LV mir. diameter/BSA (cm/m^2): 2.5 LV sys. diameter/BSA (cm/m^2): 1.6 LA A2 area: 18.8 cm2 RA long axis: 5.3 cm LA A4 area: 16.4 cm2 RA area: 11.6 cm2 LA length (vol): 4.9 cm RA vol: 21.8 ml LA vol: 53.0 ml RA : 11.9 ml/m2 LA vol index: 28.9 ml/m2 TAPSE: 2.2 cm Doppler Measurements & Calculations Ao V2 max: 113.9 cm/sec LVOT Max Andrew: 96.7 cm/sec Ao V2 mean: 82.5 cm/sec LV V1 max P.7 mmHg Ao max P.2 mmHg LV V1 VTI: 22.1 cm Ao mean P.0 mmHg VIPIN(I,D): 2.7 cm2 Ao V2 VTI: 25.6 cm VIPIN(V,D): 2.6 cm2 sev ratio: 0.86 VIPIN indexed to BSA (cm^2/m^2): 1.5 AI P1/2t: 589.6 msec AI dec slope: 178.5 cm/sec2 MV E max andrew: 99.5 cm/sec TR max andrew: 259.5 cm/sec MV A max andrew: 65.5 cm/sec TR max P.9 mmHg MV E/A: 1.5 Med Peak E' Andrew: 7.9 cm/sec E/E' med: 12.6 Lat Peak E' Andrew: 9.9 cm/sec E/E' lat: 10.1 E/e' average: 11.3 MV dec time: 0.23 sec MR ERO: 0.09 cm2 MR VTI: 209.2 cm MR PISA: 1.7 cm2 MR flow rate: 52.3 cm3/sec MR PISA radius: 0.52 cm SV(LVOT): 68.9 ml Reading Physician:10:01 AM
== END ==
PROVIDERS: PCP Internal Medicine; Referring Provider Specialist; Visit Provider Physician Assistant Medical
DX: I48.0 Paroxysmal atrial fibrillation (principal); I08.3 Combined rheumatic disorders of mitral, aortic and tricuspid valves
CPT/HCPCS: 93306

== ENCOUNTER → 2022-08-11 10:35 | Outpatient (CLI) | payer MEDICARE, OTHER, SELFPAY ==
[2018-04-04 12:37] VITALS: BMI 35.3
--- NOTE | 2022-08-12 18:11 | DI.NM.S_ITS ---
DATE OF SERVICE: 08/11/2022 PROCEDURE: Pharmacologic vasodilator stress and rest myocardial perfusion imaging with gating to assess ejection fraction and regional wall motion. ORDERING PROVIDER: Marquis Gudino MD. INDICATIONS: The patient is an 81-year-old female with multiple risk factors for coronary disease with escalating exertional chest discomfort. PHARMACOLOGIC STRESS: Per protocol, 0.4 mg of regadenoson was infused, augmented by walking on the treadmill. With this, she had a normal hemodynamic response and no anginal chest discomfort. Her resting ECG shows sinus rhythm with delayed R-wave progression but normal ST segments. With stress, there are no significant ST segment shifts or arrhythmias. Per protocol, 26.2 mCi of technetium-99m Myoview was injected and she was imaged 20 minutes later using a gated SPECT acquisition protocol. Earlier in the day, she had been injected with 12.2 mCi of technetium-99m Myoview was imaged 20 minutes later, again using a gated SPECT acquisition protocol. FINDINGS: 1. Raw data: There is fairly good myocardial tracer uptake although fairly prominent breast shadows are noted. The lung/heart ratio is normal at 0.21 with a normal TID ratio of 0.81. 2. Quantitative gated SPECT: Post-stress ejection fraction is estimated at 97%, likely an overestimate due to small left ventricular volumes. There are no focal wall motion abnormalities. The resting ejection fraction is 83% but appears similar to that of the post-stress ejection fraction. There is a normal resting end-diastolic volume of 87 mL. 3. Myocardial perfusion imaging: Post-stress supine images show a normal myocardial perfusion pattern without any concerning perfusion defects, supported by normal perfusion imaging in the prone position. The resting images show an identical perfusion pattern without any areas of improvement. IMPRESSION: 1. Normal myocardial perfusion study. 2. No concerning perfusion defects to suggest myocardial ischemia or previous myocardial infarction. 3. High-normal left ventricular systolic function without any focal wall motion abnormalities. 4. No angina or ECG evidence of ischemia with pharmacologic vasodilator stress. 5. Compared to the previous myocardial perfusion study of 05/27/2021, a similar perfusion pattern was seen previously, although perfusion appears more uniform on today's study with less breast attenuation artifact. The previous ejection fraction was 90% with an end-diastolic volume of 79 mL, suggesting no significant change from the previous exam indication. Kathryn Delgadillo - RS/fn/IKER doc#: [id number]/job#: [id number] dd: 08/12/2022 17:41:00 dt: 08/12/2022 17:50:00 DICTATING MD/COPIES TO: Marquis Gudino MD; Marquis Gudino MD COPIES MNE: DERRICK;
== END ==
PROVIDERS: PCP Internal Medicine; Referring Provider Physician Assistant Medical; Visit Provider Specialist
DX: R07.89 Other chest pain (principal); I44.0 Atrioventricular block, first degree; I10 Essential (primary) hypertension
CPT/HCPCS: 78452; 93017; A9502; J2785

== ENCOUNTER → 2025-01-04 12:24 | Outpatient (CLI) | payer MEDICARE, OTHER, SELFPAY ==
[2018-04-04 12:37] VITALS: BMI 35.3
[2025-01-04 13:05] LABS: Add Manual Diff / Slide Review NO; Hematocrit 43.0 % (36-46); Hemoglobin 14.7 g/dL (12.0-16.0); Lymphocytes Absolute Auto 1400 /uL (1100-4500); Mean Corpuscular HGB Conc 34.2 % (30-36); Mean Corpuscular Hemoglobin 31.2 PG (26-34); Mean Corpuscular Volume 91.2 fL (80-100); Platelet Count 284 X10^3/uL (150-400)
[2025-01-04 13:27] LABS: Alanine Aminotransferase 16 IU/L (<35); Albumin 4.0 g/dL (3.5-5.0); Albumin Globulin Ratio 1.7 (1.0-2.8); Alkaline Phosphatase 82 U/L (38-126); Blood Urea Nitrogen 20 mg/dL (7-17); Calcium 9.0 mg/dL (8.4-10.2); Carbon Dioxide 28 mmol/L (22-32); Chloride 103 mmol/L (98-107); Estimated Glomerular Filt Rate 59 mL/min (>60); Globulin 2.4 g/dL (1.7-4.1); Glucose 142 mg/dL (70-99); HEMOLYSIS < 15 (0-50); Potassium 4.0 mmol/L (3.4-5.1); Sodium 138 mmol/L (137-145); Total Protein 6.4 g/dL (6.3-8.2); Uric Acid 5.0 mg/dL (2.5-6.2)
[2025-01-04 13:53] LABS: Thyroid Stimulating Hormone 2.43 uIU/mL (0.47-4.68)
[2025-01-06 20:36] LABS: SS A Ro Sjogrens Antibody < 0.2 AI (0.0-0.9); SS B La Sjogrens Antibody < 0.2 AI (0.0-0.9)
== END ==
PROVIDERS: PCP Internal Medicine; Referring Provider Ophthalmology; Visit Provider Ophthalmology
DX: H57.12 Ocular pain, left eye (principal)
CPT/HCPCS: 36415; 80053; 84443; 84550; 85025; 86038; 86140; 86235; 86430